=== PATIENT | female | born 1925 | race Asian ===

== ENCOUNTER 2016-10-24 17:33 | Inpatient (IN) | payer MEDICAID ==
[~2016-10-24 17:33] MED LIST: ASPIR 8181 M1 PO; COREG25 M1 PO; COREG6.25 M1 PO; HYDRALAZINE HCL25 M1 PO; ISOSORBIDE MONO60 M3 PO; LASIX40 M1 PO; NORVASC5 M2 PO; PEPCID20 M1 PO; RENVELA800 M1 PO; ROCALTROL0.25 MC1 PO; ROCALTROL1 MCG/1 ML PO; STOP HOME MEDICATION
[2016-10-24] MEDS ORDERED: PROVENTIL HFA6.7 G1 INH (18:00)
[2016-10-24] MEDS ORDERED: AUGMENTIN 500-1 EAC2 PO (18:00)
[2016-10-24] MEDS ORDERED: ZITHROMAX250 M1 PO (18:00)
[2016-10-24 18:16] LABS: BASO % 0.1 % (0-2); EOS % 1.9 % (0-7); EOSINOPHIL ABSOLUTE COUNT 0.2 tho/cmm (0.0-0.7); HGB-HEMOGLOBIN 10.6 gm/dl (12.0-15.5); IMMATURE GRANULOCYTES ABSOLUTE 0.04 tho/cmm (0-0.03); IMMATURE GRANULOCYTES PERCENT 0.4 % (0-0.3); LYMPH % 13.6 % (20-45); LYMPH ABSOLUTE COUNT 1.3 tho/cmm (0.8-4.5); MCH (MEAN CORPUSCULAR HGB) 32.7 pg (28.0-32.0); MCHC MEAN CORPUSCULAR HGB CONC 34.2 % (32.0-36.0); MCV (MEAN CELL VOLUME) 95.7 fl (82.0-96.0); MEAN PLATELET VOLUME 10.6 cmc (9.4-12.4); MONO % 8.4 % (0-12); MONOCYTE ABSOLUTE COUNT 0.8 tho/cmm (0.0-1.2); NEUTROPHIL ABSOLUTE COUNT 7.4 tho/cmm (1.6-8.0); NEUTROPHIL-AUTOMATED 7.4 tho/cmm (1.6-8.0); NEUTROPHILS % 75.6 % (40-80); PLATELET COUNT 179 tho/cmm (150-450); RED BLOOD COUNT 3.24 mil/cmm (4.00-5.20); RED CELL DISTRIBUTION WIDTH 13.8 % (12.4-16.4); WHITE BLOOD COUNT 9.7 tho/cmm (4.0-10.0)
[2016-10-24 18:40] LABS: ALB/GLOB RATIO 0.7 (0.8-2.0); ALKALINE PHOSPHATASE 44 U/L (33-138); ALT/SGPT 22 U/L (12-78); ANION GAP 17 mmol/L (0-20); AST/SGOT 17 U/L (10-40); BILIRUBIN,TOTAL 0.4 mg/dl (0-1.5); BLOOD UREA NITROGEN 31 mg/dl (6-24); CALCIUM 7.3 mg/dl (8.5-10.5); CARBON DIOXIDE-VENOUS 23 mmol/L (22-32); CHLORIDE 107 mmol/l (96-110); CREATININE 3.77 mg/dl (0.50-1.10); GLUCOSE 150 mg/dL (70-110); MAGNESIUM 2.2 mg/dl (1.8-2.6); PHOSPHOROUS 4.3 mg/dl (2.5-4.9); POTASSIUM 3.9 mmol/L (3.7-5.1); SODIUM 143 mmol/L (135-145); eGFR VALUE FOR BLACK 12 mL/Min
[2016-10-24 18:52] LABS: PROCALCITONIN 0.05 ng/ml (0.05-0.09)
[2016-10-24 18:52] LABS: ABG CO2 ARTERIAL 24 mmol/L (21-27); ARTERIAL BLD GAS O2 SATURATION 91 % (95-98); ARTERIAL BLOOD GAS PCO2 37 mmHg (32-45); ARTERIAL PO2 61 mmHg (70-100); BICARBONATE 22 mmol/L (21-28); BLOOD GAS BASE EXCESS -1 mM/L (-/+3); PH 7.41 Units (7.35-7.45)
[2016-10-24] MEDS ORDERED: POTASSIUM CHLO10 ME2 PO (18:58)
[2016-10-24] MEDS ORDERED: XANAX0.25 M1 PO (18:58)
[2016-10-24] MEDS ORDERED: COZAAR50 M1 PO (18:58)
[2016-10-25 01:07] LABS: ABG CO2 ARTERIAL 24 mmol/L (21-27); ARTERIAL BLD GAS O2 SATURATION 94 % (95-98); ARTERIAL BLOOD GAS PCO2 38 mmHg (32-45); BICARBONATE 23 mmol/L (21-28); BLOOD GAS BASE EXCESS -1 mM/L (-/+3)
[2016-10-25 01:08] LABS: ARTERIAL PO2 85 mmHg (70-100)
[2016-10-25 02:23] LABS: EOS % 1.7 % (0-7); EOSINOPHIL ABSOLUTE COUNT 0.1 tho/cmm (0.0-0.7); IMMATURE GRANULOCYTES ABSOLUTE 0.02 tho/cmm (0-0.03); IMMATURE GRANULOCYTES PERCENT 0.2 % (0-0.3); LYMPH % 16.9 % (20-45); LYMPH ABSOLUTE COUNT 1.4 tho/cmm (0.8-4.5); MCH (MEAN CORPUSCULAR HGB) 32.7 pg (28.0-32.0); MCHC MEAN CORPUSCULAR HGB CONC 34.5 % (32.0-36.0); MCV (MEAN CELL VOLUME) 94.8 fl (82.0-96.0); MEAN PLATELET VOLUME 10.3 cmc (9.4-12.4); MONO % 7.8 % (0-12); MONOCYTE ABSOLUTE COUNT 0.7 tho/cmm (0.0-1.2); NEUTROPHIL ABSOLUTE COUNT 6.2 tho/cmm (1.6-8.0); NEUTROPHIL-AUTOMATED 6.2 tho/cmm (1.6-8.0); NEUTROPHILS % 73.4 % (40-80); PLATELET COUNT 163 tho/cmm (150-450); RED BLOOD COUNT 3.06 mil/cmm (4.00-5.20); RED CELL DISTRIBUTION WIDTH 13.8 % (12.4-16.4); WHITE BLOOD COUNT 8.4 tho/cmm (4.0-10.0)
[2016-10-25 02:58] LABS: ALB/GLOB RATIO 0.7 (0.8-2.0); ALBUMIN 2.8 g/dl (3.5-5.0); ALKALINE PHOSPHATASE 34 U/L (33-138); ALT/SGPT 18 U/L (12-78); ANION GAP 16 mmol/L (0-20); AST/SGOT 17 U/L (10-40); BLOOD UREA NITROGEN 32 mg/dl (6-24); CARBON DIOXIDE-VENOUS 25 mmol/L (22-32); CHLORIDE 107 mmol/l (96-110); CREATININE 4.07 mg/dl (0.50-1.10); GLUCOSE 114 mg/dL (70-110); MAGNESIUM 2.1 mg/dl (1.8-2.6); PHOSPHOROUS 4.5 mg/dl (2.5-4.9); POTASSIUM 3.9 mmol/L (3.7-5.1); SODIUM 144 mmol/L (135-145); eGFR VALUE FOR BLACK 11 mL/Min
[2016-10-25 03:08] LABS: BILIRUBIN,TOTAL 0.7 mg/dl (0-1.5)
[2016-10-25 14:14] LABS: URINE APPEARANCE CLEAR; URINE BILIRUBIN NEGATIVE (NEG); URINE BLOOD SMALL (NEG); URINE COLOR PALE YELLOW; URINE GLUCOSE (UA) NEGATIVE (NEG); URINE KETONE NEGATIVE (NEG); URINE LEUKOCYTE ESTERASE NEGATIVE (NEG); URINE NITRITE NEGATIVE (NEG); URINE PH 6.5 (5.0-8.0); URINE PROTEIN MODERATE (NEG); URINE SPECIFIC GRAVITY 1.005 (1.003-1.030)
[2016-10-25 14:21] LABS: URINE EPITHELIAL CELLS 0-2 /[HPF] (0-10); URINE WBC 0 /[HPF] (0-5)
[2016-10-26 06:04] LABS: ALBUMIN 2.7 g/dl (3.5-5.0); ANION GAP 19 mmol/L (0-20); BLOOD UREA NITROGEN 43 mg/dl (6-24); CALCIUM 7.2 mg/dl (8.5-10.5); CARBON DIOXIDE-VENOUS 23 mmol/L (22-32); CHLORIDE 101 mmol/l (96-110); CREATININE 4.95 mg/dl (0.50-1.10); GLUCOSE 168 mg/dL (70-110); POTASSIUM 4.1 mmol/L (3.7-5.1); SODIUM 139 mmol/L (135-145); eGFR VALUE FOR BLACK 8 mL/Min
[2016-10-26 06:08] LABS: PHOSPHOROUS 5.7 mg/dl (2.5-4.9)
[2016-10-27 05:32] LABS: BASO % 0.1 % (0-2); HCT-HEMATOCRIT 30.4 % (34.0-49.0); HGB-HEMOGLOBIN 10.6 gm/dl (12.0-15.5); IMMATURE GRANULOCYTES ABSOLUTE 0.08 tho/cmm (0-0.03); IMMATURE GRANULOCYTES PERCENT 0.8 % (0-0.3); LYMPH % 7.7 % (20-45); LYMPH ABSOLUTE COUNT 0.8 tho/cmm (0.8-4.5); MCH (MEAN CORPUSCULAR HGB) 32.3 pg (28.0-32.0); MCHC MEAN CORPUSCULAR HGB CONC 34.9 % (32.0-36.0); MCV (MEAN CELL VOLUME) 92.7 fl (82.0-96.0); MEAN PLATELET VOLUME 10.3 cmc (9.4-12.4); MONO % 4.3 % (0-12); MONOCYTE ABSOLUTE COUNT 0.4 tho/cmm (0.0-1.2); NEUTROPHILS % 87.1 % (40-80); PLATELET COUNT 211 tho/cmm (150-450); RED BLOOD COUNT 3.28 mil/cmm (4.00-5.20); RED CELL DISTRIBUTION WIDTH 13.6 % (12.4-16.4); WHITE BLOOD COUNT 10.3 tho/cmm (4.0-10.0)
[2016-10-27 05:47] LABS: ALBUMIN 2.9 g/dl (3.5-5.0); ANION GAP 16 mmol/L (0-20); BLOOD UREA NITROGEN 50 mg/dl (6-24); C-REACTIVE PROTEIN 2.5 mg/dl (0-0.9); CALCIUM 7.2 mg/dl (8.5-10.5); CARBON DIOXIDE-VENOUS 25 mmol/L (22-32); CHLORIDE 100 mmol/l (96-110); CREATININE 5.06 mg/dl (0.50-1.10); GLUCOSE 151 mg/dL (70-110); PHOSPHOROUS 5.4 mg/dl (2.5-4.9); POTASSIUM 3.5 mmol/L (3.7-5.1); SODIUM 137 mmol/L (135-145); eGFR VALUE FOR BLACK 8 mL/Min
[2016-10-28 12:15] LABS: ABG CO2 ARTERIAL 25 mmol/L (21-27); ARTERIAL BLD GAS O2 SATURATION 92 % (95-98); ARTERIAL BLOOD GAS PCO2 38 mmHg (32-45); ARTERIAL PO2 69 mmHg (70-100); BICARBONATE 24 mmol/L (21-28); BLOOD GAS BASE EXCESS 0 mM/L (-/+3); PH 7.41 Units (7.35-7.45)
[2016-10-28 12:29] LABS: BASO % 0.1 % (0-2); HCT-HEMATOCRIT 34.3 % (34.0-49.0); HGB-HEMOGLOBIN 11.9 gm/dl (12.0-15.5); IMMATURE GRANULOCYTES ABSOLUTE 0.15 tho/cmm (0-0.03); IMMATURE GRANULOCYTES PERCENT 1.3 % (0-0.3); LYMPH ABSOLUTE COUNT 0.5 tho/cmm (0.8-4.5); MCH (MEAN CORPUSCULAR HGB) 32.4 pg (28.0-32.0); MCHC MEAN CORPUSCULAR HGB CONC 34.7 % (32.0-36.0); MCV (MEAN CELL VOLUME) 93.5 fl (82.0-96.0); MEAN PLATELET VOLUME 10.7 cmc (9.4-12.4); MONO % 5.3 % (0-12); MONOCYTE ABSOLUTE COUNT 0.6 tho/cmm (0.0-1.2); NEUTROPHIL ABSOLUTE COUNT 10.6 tho/cmm (1.6-8.0); NEUTROPHIL-AUTOMATED 10.6 tho/cmm (1.6-8.0); NEUTROPHILS % 89.3 % (40-80); PLATELET COUNT 273 tho/cmm (150-450); RED BLOOD COUNT 3.67 mil/cmm (4.00-5.20); RED CELL DISTRIBUTION WIDTH 13.6 % (12.4-16.4); WHITE BLOOD COUNT 11.9 tho/cmm (4.0-10.0)
[2016-10-28 12:36] LABS: ANION GAP 21 mmol/L (0-20); BLOOD UREA NITROGEN 62 mg/dl (6-24); CALCIUM 7.2 mg/dl (8.5-10.5); CARBON DIOXIDE-VENOUS 24 mmol/L (22-32); CHLORIDE 96 mmol/l (96-110); CREATININE 5.08 mg/dl (0.50-1.10); GLUCOSE 223 mg/dL (70-110); POTASSIUM 3.6 mmol/L (3.7-5.1); SODIUM 137 mmol/L (135-145); eGFR VALUE FOR BLACK 8 mL/Min
[2016-10-28 12:52] LABS: ALB/GLOB RATIO 0.5 (0.8-2.0); ALBUMIN 3.1 g/dl (3.5-5.0); ALKALINE PHOSPHATASE 28 U/L (33-138); ALT/SGPT 37 U/L (12-78); AST/SGOT 39 U/L (10-40); BILIRUBIN,TOTAL 0.7 mg/dl (0-1.5)
[2016-10-28 13:47] LABS: BODY FLUID APPEARANCE CLEAR (CLEAR); BODY FLUID COLOR COLORLESS (COLORLESS); BODY FLUID RBC COUNT <1000 cmm (0); BODY FLUID TYPE PERITONEAL; BODY FLUID VOLUME 800 ml; BODY FLUID WBC COUNT 23 cmm
[2016-10-28 14:13] LABS: BODY FLUID LYMPHOCYTES 45 %; BODY FLUID MACROPHAGES 52 %; BODY FLUID MESOTHELIAL CELLS 3 %
[2016-10-29 05:58] LABS: BASO % 0.2 % (0-2); HCT-HEMATOCRIT 30.7 % (34.0-49.0); HGB-HEMOGLOBIN 10.6 gm/dl (12.0-15.5); IMMATURE GRANULOCYTES ABSOLUTE 0.16 tho/cmm (0-0.03); IMMATURE GRANULOCYTES PERCENT 1.9 % (0-0.3); LYMPH % 7.5 % (20-45); LYMPH ABSOLUTE COUNT 0.6 tho/cmm (0.8-4.5); MCH (MEAN CORPUSCULAR HGB) 32.4 pg (28.0-32.0); MCHC MEAN CORPUSCULAR HGB CONC 34.5 % (32.0-36.0); MCV (MEAN CELL VOLUME) 93.9 fl (82.0-96.0); MEAN PLATELET VOLUME 10.4 cmc (9.4-12.4); MONO % 4.2 % (0-12); MONOCYTE ABSOLUTE COUNT 0.4 tho/cmm (0.0-1.2); NEUTROPHIL ABSOLUTE COUNT 7.1 tho/cmm (1.6-8.0); NEUTROPHIL-AUTOMATED 7.1 tho/cmm (1.6-8.0); NEUTROPHILS % 86.2 % (40-80); PLATELET COUNT 237 tho/cmm (150-450); RED BLOOD COUNT 3.27 mil/cmm (4.00-5.20); RED CELL DISTRIBUTION WIDTH 13.6 % (12.4-16.4); WHITE BLOOD COUNT 8.2 tho/cmm (4.0-10.0)
[2016-10-29 06:05] LABS: INR 0.9 INR (0.9-1.1); PROTHROMBIN TIME 10.8 SECONDS (9.0-13.6)
[2016-10-29 06:12] LABS: ANION GAP 18 mmol/L (0-20); BLOOD UREA NITROGEN 62 mg/dl (6-24); CALCIUM 6.8 mg/dl (8.5-10.5); CARBON DIOXIDE-VENOUS 24 mmol/L (22-32); CHLORIDE 100 mmol/l (96-110); CREATININE 4.79 mg/dl (0.50-1.10); GLUCOSE 144 mg/dL (70-110); POTASSIUM 3.8 mmol/L (3.7-5.1); SODIUM 138 mmol/L (135-145); eGFR VALUE FOR BLACK 9 mL/Min
[2016-10-29 07:14] LABS: PROCALCITONIN 0.13 ng/ml (0.05-0.09)
[2016-10-30 05:16] LABS: BASO % 0.2 % (0-2); HCT-HEMATOCRIT 31.5 % (34.0-49.0); HGB-HEMOGLOBIN 10.8 gm/dl (12.0-15.5); IMMATURE GRANULOCYTES PERCENT 4.6 % (0-0.3); LYMPH % 7.4 % (20-45); LYMPH ABSOLUTE COUNT 0.6 tho/cmm (0.8-4.5); MCHC MEAN CORPUSCULAR HGB CONC 34.3 % (32.0-36.0); MCV (MEAN CELL VOLUME) 93.5 fl (82.0-96.0); MEAN PLATELET VOLUME 10.9 cmc (9.4-12.4); MONOCYTE ABSOLUTE COUNT 0.6 tho/cmm (0.0-1.2); NEUTROPHILS % 80.8 % (40-80); PLATELET COUNT 238 tho/cmm (150-450); RED BLOOD COUNT 3.37 mil/cmm (4.00-5.20); RED CELL DISTRIBUTION WIDTH 13.7 % (12.4-16.4); WHITE BLOOD COUNT 8.7 tho/cmm (4.0-10.0)
[2016-10-30 05:37] LABS: ANION GAP 17 mmol/L (0-20); BLOOD UREA NITROGEN 75 mg/dl (6-24); C-REACTIVE PROTEIN 0.7 mg/dl (0-0.9); CALCIUM 6.9 mg/dl (8.5-10.5); CARBON DIOXIDE-VENOUS 24 mmol/L (22-32); CHLORIDE 101 mmol/l (96-110); CREATININE 4.68 mg/dl (0.50-1.10); GLUCOSE 161 mg/dL (70-110); POTASSIUM 3.9 mmol/L (3.7-5.1); SODIUM 138 mmol/L (135-145); eGFR VALUE FOR BLACK 9 mL/Min
[2016-10-31 05:23] LABS: BASO % 0.2 % (0-2); HGB-HEMOGLOBIN 10.8 gm/dl (12.0-15.5); IMMATURE GRANULOCYTES ABSOLUTE 0.29 tho/cmm (0-0.03); IMMATURE GRANULOCYTES PERCENT 2.8 % (0-0.3); LYMPH % 6.9 % (20-45); LYMPH ABSOLUTE COUNT 0.7 tho/cmm (0.8-4.5); MCH (MEAN CORPUSCULAR HGB) 31.7 pg (28.0-32.0); MCHC MEAN CORPUSCULAR HGB CONC 33.8 % (32.0-36.0); MCV (MEAN CELL VOLUME) 93.8 fl (82.0-96.0); MEAN PLATELET VOLUME 10.5 cmc (9.4-12.4); MONOCYTE ABSOLUTE COUNT 0.4 tho/cmm (0.0-1.2); NEUTROPHIL ABSOLUTE COUNT 9.1 tho/cmm (1.6-8.0); NEUTROPHIL-AUTOMATED 9.1 tho/cmm (1.6-8.0); NEUTROPHILS % 86.1 % (40-80); PLATELET COUNT 271 tho/cmm (150-450); RED BLOOD COUNT 3.41 mil/cmm (4.00-5.20); RED CELL DISTRIBUTION WIDTH 13.7 % (12.4-16.4); WHITE BLOOD COUNT 10.5 tho/cmm (4.0-10.0)
[2016-10-31 05:28] LABS: ALBUMIN 2.9 g/dl (3.5-5.0); ANION GAP 18 mmol/L (0-20); BLOOD UREA NITROGEN 73 mg/dl (6-24); CALCIUM 6.7 mg/dl (8.5-10.5); CARBON DIOXIDE-VENOUS 25 mmol/L (22-32); CHLORIDE 99 mmol/l (96-110); CREATININE 4.48 mg/dl (0.50-1.10); GLUCOSE 150 mg/dL (70-110); PHOSPHOROUS 7.3 mg/dl (2.5-4.9); POTASSIUM 4.1 mmol/L (3.7-5.1); SODIUM 138 mmol/L (135-145); eGFR VALUE FOR BLACK 9 mL/Min
[2016-11-01 14:52] LABS: BAL APPEARANCE HAZY (CLEAR); BAL COLOR PINK (COLORLESS)
[2016-11-01 15:19] LABS: BAL LYMPHOCYTES 4 %; BAL NEUTROPHILS 94 %
[2016-11-02 11:14] LABS: BASO % 0.1 % (0-2); HCT-HEMATOCRIT 34.5 % (34.0-49.0); HGB-HEMOGLOBIN 11.9 gm/dl (12.0-15.5); IMMATURE GRANULOCYTES PERCENT 4.6 % (0-0.3); LYMPH % 6.4 % (20-45); LYMPH ABSOLUTE COUNT 0.7 tho/cmm (0.8-4.5); MCH (MEAN CORPUSCULAR HGB) 32.3 pg (28.0-32.0); MCHC MEAN CORPUSCULAR HGB CONC 34.5 % (32.0-36.0); MCV (MEAN CELL VOLUME) 93.8 fl (82.0-96.0); MEAN PLATELET VOLUME 10.6 cmc (9.4-12.4); MONO % 5.3 % (0-12); MONOCYTE ABSOLUTE COUNT 0.6 tho/cmm (0.0-1.2); NEUTROPHIL ABSOLUTE COUNT 9.1 tho/cmm (1.6-8.0); NEUTROPHIL-AUTOMATED 9.1 tho/cmm (1.6-8.0); NEUTROPHILS % 83.6 % (40-80); PLATELET COUNT 332 tho/cmm (150-450); RED BLOOD COUNT 3.68 mil/cmm (4.00-5.20); RED CELL DISTRIBUTION WIDTH 13.7 % (12.4-16.4); WHITE BLOOD COUNT 10.8 tho/cmm (4.0-10.0)
[2016-11-03 05:49] LABS: BASO % 0.1 % (0-2); HCT-HEMATOCRIT 33.2 % (34.0-49.0); HGB-HEMOGLOBIN 11.3 gm/dl (12.0-15.5); IMMATURE GRANULOCYTES ABSOLUTE 0.36 tho/cmm (0-0.03); IMMATURE GRANULOCYTES PERCENT 2.5 % (0-0.3); LYMPH % 5.5 % (20-45); LYMPH ABSOLUTE COUNT 0.8 tho/cmm (0.8-4.5); MCH (MEAN CORPUSCULAR HGB) 32.2 pg (28.0-32.0); MCV (MEAN CELL VOLUME) 94.6 fl (82.0-96.0); MEAN PLATELET VOLUME 10.6 cmc (9.4-12.4); MONO % 4.5 % (0-12); MONOCYTE ABSOLUTE COUNT 0.7 tho/cmm (0.0-1.2); NEUTROPHIL ABSOLUTE COUNT 12.6 tho/cmm (1.6-8.0); NEUTROPHIL-AUTOMATED 12.6 tho/cmm (1.6-8.0); NEUTROPHILS % 87.4 % (40-80); PLATELET COUNT 314 tho/cmm (150-450); RED BLOOD COUNT 3.51 mil/cmm (4.00-5.20); RED CELL DISTRIBUTION WIDTH 13.9 % (12.4-16.4); WHITE BLOOD COUNT 14.5 tho/cmm (4.0-10.0)
[2016-11-03 05:59] LABS: ALB/GLOB RATIO 0.6 (0.8-2.0); ALBUMIN 2.6 g/dl (3.5-5.0); ALT/SGPT 45 U/L (12-78); ANION GAP 21 mmol/L (0-20); AST/SGOT 20 U/L (10-40); BILIRUBIN,TOTAL 0.4 mg/dl (0-1.5); BLOOD UREA NITROGEN 90 mg/dl (6-24); CARBON DIOXIDE-VENOUS 23 mmol/L (22-32); CHLORIDE 94 mmol/l (96-110); CREATININE 5.17 mg/dl (0.50-1.10); GLUCOSE 190 mg/dL (70-110); PHOSPHOROUS 7.6 mg/dl (2.5-4.9); SODIUM 134 mmol/L (135-145); eGFR VALUE FOR BLACK 8 mL/Min
[2016-11-03 06:26] LABS: ALKALINE PHOSPHATASE 28 U/L (33-138); CALCIUM 6.5 mg/dl (8.5-10.5)
[2016-11-03 06:31] LABS: PROCALCITONIN 0.11 ng/ml (0.05-0.09)
[2016-11-03 20:03] LABS: BASO % 0.1 % (0-2); HCT-HEMATOCRIT 29.7 % (34.0-49.0); HGB-HEMOGLOBIN 10.3 gm/dl (12.0-15.5); IMMATURE GRANULOCYTES ABSOLUTE 0.35 tho/cmm (0-0.03); IMMATURE GRANULOCYTES PERCENT 2.2 % (0-0.3); LYMPH % 4.9 % (20-45); LYMPH ABSOLUTE COUNT 0.8 tho/cmm (0.8-4.5); MCH (MEAN CORPUSCULAR HGB) 32.6 pg (28.0-32.0); MCHC MEAN CORPUSCULAR HGB CONC 34.7 % (32.0-36.0); MEAN PLATELET VOLUME 10.5 cmc (9.4-12.4); MONO % 3.2 % (0-12); MONOCYTE ABSOLUTE COUNT 0.5 tho/cmm (0.0-1.2); NEUTROPHIL ABSOLUTE COUNT 14.4 tho/cmm (1.6-8.0); NEUTROPHIL-AUTOMATED 14.4 tho/cmm (1.6-8.0); NEUTROPHILS % 89.6 % (40-80); PLATELET COUNT 272 tho/cmm (150-450); RED BLOOD COUNT 3.16 mil/cmm (4.00-5.20); RED CELL DISTRIBUTION WIDTH 13.9 % (12.4-16.4); WHITE BLOOD COUNT 16.1 tho/cmm (4.0-10.0)
[2016-11-04 05:04] LABS: BASO % 0.1 % (0-2); HCT-HEMATOCRIT 29.3 % (34.0-49.0); HGB-HEMOGLOBIN 10.1 gm/dl (12.0-15.5); IMMATURE GRANULOCYTES ABSOLUTE 0.35 tho/cmm (0-0.03); LYMPH % 4.5 % (20-45); LYMPH ABSOLUTE COUNT 0.8 tho/cmm (0.8-4.5); MCH (MEAN CORPUSCULAR HGB) 32.5 pg (28.0-32.0); MCHC MEAN CORPUSCULAR HGB CONC 34.5 % (32.0-36.0); MCV (MEAN CELL VOLUME) 94.2 fl (82.0-96.0); MEAN PLATELET VOLUME 10.3 cmc (9.4-12.4); MONO % 4.9 % (0-12); MONOCYTE ABSOLUTE COUNT 0.9 tho/cmm (0.0-1.2); NEUTROPHIL ABSOLUTE COUNT 15.8 tho/cmm (1.6-8.0); NEUTROPHIL-AUTOMATED 15.8 tho/cmm (1.6-8.0); NEUTROPHILS % 88.5 % (40-80); PLATELET COUNT 262 tho/cmm (150-450); RED BLOOD COUNT 3.11 mil/cmm (4.00-5.20); WHITE BLOOD COUNT 17.9 tho/cmm (4.0-10.0)
[2016-11-04 05:12] LABS: ANION GAP 20 mmol/L (0-20); BLOOD UREA NITROGEN 97 mg/dl (6-24); CARBON DIOXIDE-VENOUS 25 mmol/L (22-32); CHLORIDE 93 mmol/l (96-110); GLUCOSE 154 mg/dL (70-110); POTASSIUM 4.1 mmol/L (3.7-5.1); SODIUM 134 mmol/L (135-145); eGFR VALUE FOR BLACK 7 mL/Min
[2016-11-04 05:17] LABS: CALCIUM 6.1 mg/dl (8.5-10.5)
[2016-11-05 03:07] LABS: BODY FLUID TYPE DIALYSATE
[2016-11-05 03:09] LABS: BODY FLUID APPEARANCE CLEAR (CLEAR); BODY FLUID COLOR COLORLESS (COLORLESS); BODY FLUID VOLUME 20 ml
[2016-11-05 03:10] LABS: BODY FLUID RBC COUNT <1000 cmm (0); BODY FLUID WBC COUNT 8 cmm
[2016-11-05 05:06] LABS: BASO % 0.1 % (0-2); HCT-HEMATOCRIT 28.7 % (34.0-49.0); IMMATURE GRANULOCYTES ABSOLUTE 0.34 tho/cmm (0-0.03); IMMATURE GRANULOCYTES PERCENT 1.4 % (0-0.3); LYMPH % 3.2 % (20-45); LYMPH ABSOLUTE COUNT 0.8 tho/cmm (0.8-4.5); MCH (MEAN CORPUSCULAR HGB) 32.6 pg (28.0-32.0); MCHC MEAN CORPUSCULAR HGB CONC 34.8 % (32.0-36.0); MCV (MEAN CELL VOLUME) 93.5 fl (82.0-96.0); MEAN PLATELET VOLUME 10.5 cmc (9.4-12.4); MONO % 2.6 % (0-12); MONOCYTE ABSOLUTE COUNT 0.7 tho/cmm (0.0-1.2); NEUTROPHIL ABSOLUTE COUNT 23.3 tho/cmm (1.6-8.0); NEUTROPHIL-AUTOMATED 23.3 tho/cmm (1.6-8.0); NEUTROPHILS % 92.7 % (40-80); PLATELET COUNT 241 tho/cmm (150-450); RED BLOOD COUNT 3.07 mil/cmm (4.00-5.20); RED CELL DISTRIBUTION WIDTH 14.1 % (12.4-16.4); WHITE BLOOD COUNT 25.1 tho/cmm (4.0-10.0)
[2016-11-05 05:29] LABS: ALB/GLOB RATIO 0.6 (0.8-2.0); ALBUMIN 2.4 g/dl (3.5-5.0); ALKALINE PHOSPHATASE 25 U/L (33-138); ALT/SGPT 35 U/L (12-78); ANION GAP 18 mmol/L (0-20); AST/SGOT 15 U/L (10-40); BILIRUBIN,TOTAL 0.4 mg/dl (0-1.5); BLOOD UREA NITROGEN 89 mg/dl (6-24); CALCIUM 6.6 mg/dl (8.5-10.5); CARBON DIOXIDE-VENOUS 26 mmol/L (22-32); CHLORIDE 93 mmol/l (96-110); CREATININE 6.03 mg/dl (0.50-1.10); GLUCOSE 145 mg/dL (70-110); POTASSIUM 4.1 mmol/L (3.7-5.1); SODIUM 133 mmol/L (135-145); eGFR VALUE FOR BLACK 7 mL/Min
[2016-11-05 05:53] LABS: PHOSPHOROUS 8.8 mg/dl (2.5-4.9)
[2016-11-05 05:54] LABS: PROCALCITONIN 0.66 ng/ml (0.05-0.09)
[2016-11-06 04:39] LABS: BASO % 0.1 % (0-2); HCT-HEMATOCRIT 28.9 % (34.0-49.0); HGB-HEMOGLOBIN 10.1 gm/dl (12.0-15.5); IMMATURE GRANULOCYTES ABSOLUTE 0.53 tho/cmm (0-0.03); LYMPH % 4.1 % (20-45); LYMPH ABSOLUTE COUNT 0.7 tho/cmm (0.8-4.5); MCH (MEAN CORPUSCULAR HGB) 32.4 pg (28.0-32.0); MCHC MEAN CORPUSCULAR HGB CONC 34.9 % (32.0-36.0); MCV (MEAN CELL VOLUME) 92.6 fl (82.0-96.0); MEAN PLATELET VOLUME 10.4 cmc (9.4-12.4); MONO % 4.5 % (0-12); MONOCYTE ABSOLUTE COUNT 0.8 tho/cmm (0.0-1.2); NEUTROPHIL ABSOLUTE COUNT 15.6 tho/cmm (1.6-8.0); NEUTROPHIL-AUTOMATED 15.6 tho/cmm (1.6-8.0); NEUTROPHILS % 88.3 % (40-80); PLATELET COUNT 249 tho/cmm (150-450); RED BLOOD COUNT 3.12 mil/cmm (4.00-5.20); RED CELL DISTRIBUTION WIDTH 14.2 % (12.4-16.4); WHITE BLOOD COUNT 17.6 tho/cmm (4.0-10.0)
[2016-11-06 04:54] LABS: ALB/GLOB RATIO 0.6 (0.8-2.0); ALBUMIN 2.5 g/dl (3.5-5.0); ALT/SGPT 33 U/L (12-78); ANION GAP 17 mmol/L (0-20); AST/SGOT 15 U/L (10-40); BLOOD UREA NITROGEN 85 mg/dl (6-24); CALCIUM 7.2 mg/dl (8.5-10.5); CARBON DIOXIDE-VENOUS 27 mmol/L (22-32); CHLORIDE 94 mmol/l (96-110); CREATININE 6.07 mg/dl (0.50-1.10); GLUCOSE 133 mg/dL (70-110); POTASSIUM 3.7 mmol/L (3.7-5.1); SODIUM 134 mmol/L (135-145); eGFR VALUE FOR BLACK 7 mL/Min
[2016-11-06 05:13] LABS: PROCALCITONIN 0.77 ng/ml (0.05-0.09)
[2016-11-06 05:35] LABS: ALKALINE PHOSPHATASE 28 U/L (33-138); BILIRUBIN,TOTAL 0.7 mg/dl (0-1.5)
[2016-11-07 06:45] LABS: ANION GAP 20 mmol/L (0-20); BLOOD UREA NITROGEN 88 mg/dl (6-24); CALCIUM 7.1 mg/dl (8.5-10.5); CARBON DIOXIDE-VENOUS 24 mmol/L (22-32); CHLORIDE 92 mmol/l (96-110); CREATININE 6.09 mg/dl (0.50-1.10); GLUCOSE 153 mg/dL (70-110); MAGNESIUM 2.5 mg/dl (1.8-2.6); PHOSPHOROUS 6.5 mg/dl (2.5-4.9); POTASSIUM 3.6 mmol/L (3.7-5.1); SODIUM 132 mmol/L (135-145); eGFR VALUE FOR BLACK 7 mL/Min
[2016-11-07] MEDS ORDERED: OS-CAL 500+D31 EAC1 PO (12:21)
[2016-11-07] MEDS ORDERED: MUCINEX600 M1 PO (12:23)
[2016-11-07] MEDS ORDERED: RENVELA800 M1 PO (12:23)
[2016-11-07] MEDS ORDERED: GENTAMICIN SULF30 G1 TOP (12:25)
[2016-11-07] MEDS ORDERED: MAALOX MAXIMUM355 M1 PO (12:26)
[2016-11-07] MEDS ORDERED: MIRALAX17 G2 PO (12:28)
[2016-11-07] MEDS ORDERED: PROTONIX40 M2 PO (12:34)
[2016-11-07] MEDS ORDERED: PREDNISONE10 M1 PO (12:36)
== END 2016-11-07 16:00 | disposition home health service (06) | DRG 190 ==
LOC: EDMED 17:33 → EMR2 20:14 → PCUA 22:25 → CCU 10-28 16:20 → PCUA 10-29 18:30
PROVIDERS: Emergency Medicine; Internal Medicine; Internal Medicine Critical Care Medicine; Internal Medicine Infectious Disease; Internal Medicine Nephrology; Registered Nurse; ADMIT Internal Medicine
PROC: 0B9B8ZX Drainage of Left Lower Lobe Bronchus, Via Natural or Artificial Opening Endoscopic, Diagnostic (ICD-10-PCS; 2016-10-30)
PROC: 0B958ZX Drainage of Right Middle Lobe Bronchus, Via Natural or Artificial Opening Endoscopic, Diagnostic (ICD-10-PCS; principal; 2016-11-01)
PROC: 0BCB8ZZ Extirpation of Matter from Left Lower Lobe Bronchus, Via Natural or Artificial Opening Endoscopic (ICD-10-PCS; 2016-11-01)
PROC: 0BC68ZZ Extirpation of Matter from Right Lower Lobe Bronchus, Via Natural or Artificial Opening Endoscopic (ICD-10-PCS; 2016-11-01)
PROC: 0DB68ZX Excision of Stomach, Via Natural or Artificial Opening Endoscopic, Diagnostic (ICD-10-PCS; 2016-11-04)
DX: J44.0 Chronic obstructive pulmonary disease with (acute) lower respiratory infection (principal); J12.3 Human metapneumovirus pneumonia; J96.90 Respiratory failure, unspecified, unspecified whether with hypoxia or hypercapnia; I13.2 Hypertensive heart and chronic kidney disease with heart failure and with stage 5 chronic kidney disease, or end stage renal disease; K25.4 Chronic or unspecified gastric ulcer with hemorrhage; E87.2 Acidosis; K26.4 Chronic or unspecified duodenal ulcer with hemorrhage; N18.6 End stage renal disease; T17.590A Other foreign object in bronchus causing asphyxiation, initial encounter; N25.81 Secondary hyperparathyroidism of renal origin; J98.11 Atelectasis; I50.32 Chronic diastolic (congestive) heart failure; E87.1 Hypo-osmolality and hyponatremia; I08.1 Rheumatic disorders of both mitral and tricuspid valves; I27.2 Other secondary pulmonary hypertension; Z99.2 Dependence on renal dialysis; F03.90 Unspecified dementia, unspecified severity, without behavioral disturbance, psychotic disturbance, mood disturbance, and anxiety; Z79.82 Long term (current) use of aspirin; Z79.02 Long term (current) use of antithrombotics/antiplatelets; F41.9 Anxiety disorder, unspecified; Z88.8 Allergy status to other drugs, medicaments and biological substances; Z88.1 Allergy status to other antibiotic agents; R73.9 Hyperglycemia, unspecified; K21.0 Gastro-esophageal reflux disease with esophagitis; K29.80 Duodenitis without bleeding; J44.1 Chronic obstructive pulmonary disease with (acute) exacerbation; D63.1 Anemia in chronic kidney disease; Z86.11 Personal history of tuberculosis; D72.829 Elevated white blood cell count, unspecified; R09.02 Hypoxemia
CPT/HCPCS: C9113; G8978-GP-CK; G8979-GP-CJ; G8980-GP-CK; G8996-GN-CJ; G8997-GN-CI; G8998-GN-CI; J0360; J0696; J1644; J1650; J1940; J2250; J2270; J2405; J2543; J2920; J2930; J3010; J3370; J7512; Q9967

== ENCOUNTER 2016-11-19 14:27 | Observation (INO) | payer MEDICAID ==
[~2016-11-19 14:27] MED LIST changes: +AUGMENTIN 500-1 EAC2 PO; +COZAAR50 M1 PO; +GENTAMICIN SULF30 G1 TOP; +MAALOX MAXIMUM355 M1 PO; +MIRALAX17 G2 PO; +MUCINEX600 M1 PO; +OS-CAL 500+D31 EAC1 PO; +POTASSIUM CHLO10 ME2 PO; +PREDNISONE10 M1 PO; +PROTONIX40 M2 PO; +PROVENTIL HFA6.7 G1 INH; +XANAX0.25 M1 PO; +ZITHROMAX250 M1 PO
[2016-11-19] MEDS ORDERED: DIFLUCAN100 M1 PO (15:17)
[2016-11-19 16:23] LABS: BASO % 0.2 % (0-2); EOS % 3.1 % (0-7); EOSINOPHIL ABSOLUTE COUNT 0.2 tho/cmm (0.0-0.7); HGB-HEMOGLOBIN 6.5 gm/dl (12.0-15.5); IMMATURE GRANULOCYTES ABSOLUTE 0.01 tho/cmm (0-0.03); IMMATURE GRANULOCYTES PERCENT 0.2 % (0-0.3); LYMPH % 23.1 % (20-45); LYMPH ABSOLUTE COUNT 1.1 tho/cmm (0.8-4.5); MCH (MEAN CORPUSCULAR HGB) 32.7 pg (28.0-32.0); MEAN PLATELET VOLUME 10.3 cmc (9.4-12.4); MONO % 7.4 % (0-12); MONOCYTE ABSOLUTE COUNT 0.4 tho/cmm (0.0-1.2); NEUTROPHIL ABSOLUTE COUNT 3.2 tho/cmm (1.6-8.0); NEUTROPHIL-AUTOMATED 3.2 tho/cmm (1.6-8.0); PLATELET COUNT 126 tho/cmm (150-450); RED BLOOD COUNT 1.99 mil/cmm (4.00-5.20); RED CELL DISTRIBUTION WIDTH 14.8 % (12.4-16.4); WHITE BLOOD COUNT 4.9 tho/cmm (4.0-10.0)
[2016-11-19 16:24] LABS: HCT-HEMATOCRIT 19.1 % (34.0-49.0)
[2016-11-19 16:37] LABS: ANION GAP 15 mmol/L (0-20); BLOOD UREA NITROGEN 46 mg/dl (6-24); CALCIUM 6.8 mg/dl (8.5-10.5); CARBON DIOXIDE-VENOUS 27 mmol/L (22-32); CHLORIDE 97 mmol/l (96-110); CREATININE 9.63 mg/dl (0.50-1.10); GLUCOSE 106 mg/dL (70-110); POTASSIUM 3.3 mmol/L (3.7-5.1); SODIUM 136 mmol/L (135-145); eGFR VALUE FOR BLACK 4 mL/Min
[2016-11-19 16:52] LABS: INR 0.9 INR (0.9-1.1)
[2016-11-20 00:08] LABS: HGB-HEMOGLOBIN 8.5 gm/dl (12.0-15.5)
[2016-11-20 05:47] LABS: BASO % 0.3 % (0-2); EOS % 2.6 % (0-7); EOSINOPHIL ABSOLUTE COUNT 0.1 tho/cmm (0.0-0.7); HGB-HEMOGLOBIN 10.8 gm/dl (12.0-15.5); IMMATURE GRANULOCYTES ABSOLUTE 0.01 tho/cmm (0-0.03); IMMATURE GRANULOCYTES PERCENT 0.3 % (0-0.3); LYMPH % 23.8 % (20-45); LYMPH ABSOLUTE COUNT 0.9 tho/cmm (0.8-4.5); MCHC MEAN CORPUSCULAR HGB CONC 34.4 % (32.0-36.0); MCV (MEAN CELL VOLUME) 91.8 fl (82.0-96.0); MEAN PLATELET VOLUME 10.2 cmc (9.4-12.4); MONO % 7.5 % (0-12); MONOCYTE ABSOLUTE COUNT 0.3 tho/cmm (0.0-1.2); NEUTROPHIL ABSOLUTE COUNT 2.5 tho/cmm (1.6-8.0); NEUTROPHIL-AUTOMATED 2.5 tho/cmm (1.6-8.0); NEUTROPHILS % 65.5 % (40-80); PLATELET COUNT 100 tho/cmm (150-450); RED CELL DISTRIBUTION WIDTH 15.3 % (12.4-16.4); WHITE BLOOD COUNT 3.9 tho/cmm (4.0-10.0)
[2016-11-20 05:50] LABS: HCT-HEMATOCRIT 31.4 % (34.0-49.0); MCH (MEAN CORPUSCULAR HGB) 31.5 pg (28.0-32.0); RED BLOOD COUNT 3.42 mil/cmm (4.00-5.20)
[2016-11-20 06:02] LABS: ALB/GLOB RATIO 0.5 (0.8-2.0); ALKALINE PHOSPHATASE 30 U/L (33-138); ALT/SGPT 17 U/L (12-78); ANION GAP 17 mmol/L (0-20); AST/SGOT 10 U/L (10-40); BILIRUBIN,TOTAL 0.5 mg/dl (0-1.5); BLOOD UREA NITROGEN 42 mg/dl (6-24); CALCIUM 6.6 mg/dl (8.5-10.5); CARBON DIOXIDE-VENOUS 24 mmol/L (22-32); CHLORIDE 102 mmol/l (96-110); CREATININE 8.97 mg/dl (0.50-1.10); GLUCOSE 102 mg/dL (70-110); MAGNESIUM 2.2 mg/dl (1.8-2.6); POTASSIUM 3.8 mmol/L (3.7-5.1); SODIUM 139 mmol/L (135-145); eGFR VALUE FOR BLACK 4 mL/Min
[2016-11-20 12:34] LABS: BODY FLUID APPEARANCE CLEAR (CLEAR); BODY FLUID COLOR COLORLESS (COLORLESS); BODY FLUID TYPE PERITONEAL; BODY FLUID VOLUME 1500 ml
[2016-11-20 12:38] LABS: BODY FLUID RBC COUNT <1000 cmm (0); BODY FLUID WBC COUNT 13 cmm
[2016-11-20 13:22] LABS: BODY FLUID LYMPHOCYTES 4 %; BODY FLUID MACROPHAGES 37 %; BODY FLUID NEUTROPHILS 59 %
[2016-11-20 14:42] LABS: URINE BILIRUBIN NEGATIVE (NEG); URINE BLOOD MODERATE (NEG); URINE GLUCOSE (UA) NEGATIVE (NEG); URINE KETONE NEGATIVE (NEG); URINE LEUKOCYTE ESTERASE POSITIVE (NEG); URINE NITRITE NEGATIVE (NEG); URINE PROTEIN MODERATE (NEG)
[2016-11-20 14:43] LABS: URINE APPEARANCE CLOUDY; URINE COLOR YELLOW
[2016-11-20 14:53] LABS: URINE AMORPHOUS 2+; URINE BACTERIA 1+
[2016-11-20 15:15] LABS: FERRITIN 714 ng/ml (8-250)
[2016-11-20 15:30] LABS: IRON 29 ug/dl (37-170); IRON BINDING CAPACITY 174 ug/dl (250-450)
[2016-11-21 05:45] LABS: BASO % 0.2 % (0-2); EOS % 2.2 % (0-7); EOSINOPHIL ABSOLUTE COUNT 0.1 tho/cmm (0.0-0.7); HCT-HEMATOCRIT 34.2 % (34.0-49.0); HGB-HEMOGLOBIN 11.7 gm/dl (12.0-15.5); IMMATURE GRANULOCYTES ABSOLUTE 0.03 tho/cmm (0-0.03); IMMATURE GRANULOCYTES PERCENT 0.7 % (0-0.3); LYMPH % 37.8 % (20-45); LYMPH ABSOLUTE COUNT 1.7 tho/cmm (0.8-4.5); MCH (MEAN CORPUSCULAR HGB) 31.2 pg (28.0-32.0); MCHC MEAN CORPUSCULAR HGB CONC 34.2 % (32.0-36.0); MCV (MEAN CELL VOLUME) 91.2 fl (82.0-96.0); MEAN PLATELET VOLUME 11.4 cmc (9.4-12.4); MONO % 10.8 % (0-12); MONOCYTE ABSOLUTE COUNT 0.5 tho/cmm (0.0-1.2); NEUTROPHIL ABSOLUTE COUNT 2.2 tho/cmm (1.6-8.0); NEUTROPHIL-AUTOMATED 2.2 tho/cmm (1.6-8.0); NEUTROPHILS % 48.3 % (40-80); PLATELET COUNT 108 tho/cmm (150-450); RED BLOOD COUNT 3.75 mil/cmm (4.00-5.20); WHITE BLOOD COUNT 4.6 tho/cmm (4.0-10.0)
[2016-11-21 05:54] LABS: ALBUMIN 1.9 g/dl (3.5-5.0); ANION GAP 15 mmol/L (0-20); BLOOD UREA NITROGEN 36 mg/dl (6-24); CALCIUM 6.8 mg/dl (8.5-10.5); CARBON DIOXIDE-VENOUS 25 mmol/L (22-32); CHLORIDE 104 mmol/l (96-110); CREATININE 7.14 mg/dl (0.50-1.10); FERRITIN 682 ng/ml (8-250); GLUCOSE 96 mg/dL (70-110); PHOSPHOROUS 2.5 mg/dl (2.5-4.9); POTASSIUM 3.4 mmol/L (3.7-5.1); SODIUM 141 mmol/L (135-145); eGFR VALUE FOR BLACK 5 mL/Min
[2016-11-21 05:58] LABS: IRON 20 ug/dl (37-170); IRON BINDING CAPACITY 155 ug/dl (250-450)
== END 2016-11-21 13:50 | disposition home health service (06) ==
LOC: EDMED 14:27 → EMR2 18:12 → PCUB 19:40
PROVIDERS: Emergency Medicine; Internal Medicine; Internal Medicine Nephrology; ADMIT Hospitalist
PROC: 30233N1 Transfusion of Nonautologous Red Blood Cells into Peripheral Vein, Percutaneous Approach (ICD-10-PCS; principal; 2016-11-19)
DX: D62 Acute posthemorrhagic anemia (principal); I13.2 Hypertensive heart and chronic kidney disease with heart failure and with stage 5 chronic kidney disease, or end stage renal disease; N18.6 End stage renal disease; I50.30 Unspecified diastolic (congestive) heart failure; G93.40 Encephalopathy, unspecified; I27.2 Other secondary pulmonary hypertension; I34.0 Nonrheumatic mitral (valve) insufficiency; K26.9 Duodenal ulcer, unspecified as acute or chronic, without hemorrhage or perforation; K25.9 Gastric ulcer, unspecified as acute or chronic, without hemorrhage or perforation; N25.81 Secondary hyperparathyroidism of renal origin; I36.1 Nonrheumatic tricuspid (valve) insufficiency; E87.6 Hypokalemia; F41.9 Anxiety disorder, unspecified; K21.0 Gastro-esophageal reflux disease with esophagitis; D61.818 Other pancytopenia; R63.4 Abnormal weight loss; R53.1 Weakness; Z79.899 Other long term (current) drug therapy; Z88.1 Allergy status to other antibiotic agents; Z88.8 Allergy status to other drugs, medicaments and biological substances; Z98.890 Other specified postprocedural states; Z99.2 Dependence on renal dialysis
CPT/HCPCS: C9113; G0378; J0885; J7030; P9016